=== PATIENT | male | born 1985 | race African-American/Black ===

== ENCOUNTER 2016-06-20 12:28 | Emergency (ER) | payer OTHER ==
--- NOTE | 2016-06-20 14:12 | DIAGNOSTIC IMAGING REPORT ---
PROCEDURE: XR ELBOW 3 OR 4 VIEWS - LEFT INDICATION: PAIN IN JOINT TECHNIQUE: Four views. COMPARISON: None. FINDINGS: A side plate and multiple screws are across the humerus. IMPRESSION: 1. Side plate and multiple screws across the humerus.
--- NOTE | 2016-06-20 14:23 | ED ORDER SUMMARY ---
..... Patient: CHICHO ANGEL OrderSheet [facility] VisitID: [id number] [place] [address] 31y, M Registration Date/Time: 06/20/2016 ORDER SHEET Weight: 67.1 kg (stated) Allergies: No Known Drug Allergy GENERAL ORDERS: Elbow 3 or 4V Left Urgent (13:08 06/20/2016 HBivens A.R.N.P.) (Ack 13:10 IJurca ER Tech1) (13:49 Vesna R.N.) MEDICATION ORDERS: Hydrocodone-APAP PO 5/325 mg (NOW, HIGH ALERT MEDICATION) (13:08 06/20/2016 HBivens A.R.N.P.) (Ack 13:18 Magdi R.N.) (13:25 Magdi R.N.) IV FLUIDS: ORDER SHEET NOTES: [Electronically signed by Henny Jones R.N. (14:52 06/20/2016)] [Electronically signed by Chante MejiaR.N.PYudith (15:00 06/20/2016)] [Electronically locked/signed by Henny Jones R.N. (14:52 06/20/2016)]
--- NOTE | 2016-06-20 14:23 | ED NURSING NOTES ---
Clinical Report - Nurses [facility] [address] [place] [address] 06/20/2016 12:31 Patient: CHICHO ANGEL TRIAGE Triage time 12:37. Acuity: LEVEL 3. Chief Complaint: INJURY TO LEFT ELBOW. Alert. No acute distress. RAJ COMA SCORE: Raj Coma Scale: 15- eyes open spontaneously (4); best verbal response- oriented x 4 (5); best motor response- obeys commands (6). --12:47 Henny Jones R.N. 12:37 06/20/16. BP: 156/104. HR: 77. RR: 16. O2 saturation: 100% on room air. Temp: 98.2 F (oral). Pain level now: 12/16. --12:47 Henny Jones R.N. Weight: 67.1 kg stated. Height/Length: 64 inches Per Patient. BMI: 25.4. --12:45 Henny Jones R.N. Medications Acetaminophen Oral. Folic Acid Oral. Loratadine Oral. Metoprolol Tartrate Oral. Protonix Oral. SEROquel Oral. TraZODone HCl Oral. --12:42 Henny Jones R.N. Fluticasone Furoate Nasal. --12:42 Henny Jones R.N. Norvasc Oral. --12:42 Henny Jones R.N. Ibuprofen Oral. --12:42 Henny Jones R.N. Medication/allergy information source: the patient's pill bottles. --12:47 Henny Jones R.N. Allergies No Known Drug Allergy. --12:42 Henny Jones R.N. History Arrived by private vehicle. Historian: patient. Accompanied by family. Primary physician (Robert). This occurred today. Mechanism of injury: (helping rearrange furniture, now arm and elbow hurt (previous surgery on same)). SOCIAL HX: Never smoker. Occasional alcohol use. History of drug use: marijuana. FALL RISK ASSESSMENT: Fall risk assessment completed. No fall risk identified. FUNCTIONAL ASSESSMENT: Functional assessment: no impairments noted. LEARNING NEEDS ASSESSMENT: The learning needs assessment revealed no barriers. --12:47 Henny Jones R.N. PROBLEMS: Pancreatitis. Hypertension. Depression. Anxiety Reaction. --12:44 Henny Jones R.N. ADDITIONAL SURGERIES: Elbow [2016]. --12:44 Henny Jones R.N. Assessment GENERAL / NEURO / PSYCH: Alert. Oriented X 4. Appears in no acute distress. Patient appears calm and cooperative. RESPIRATORY: Respirations not labored. SKIN: Skin is warm and dry. --12:47 Henny Jones R.N. Interventions ID band on patient. To treatment room. --12:47 Henny Jones R.N. PHYSICAL ASSESSMENT 12:55 06/20/16. Ambulatory to room. GENERAL / NEURO / PSYCH: Oriented X 4. Alert. Appears in no acute distress. EXTREMITIES: ( left radial pulse palpable, swelling in left hand and elbow). SKIN: Skin is warm and dry. --12:55 Henny Jones R.N. NURSING PROGRESS NOTES 12:51 06/20/16. Cold pack applied. Call light placed in reach. Side rails up x 1. Bed placed in lowest position. Brakes of bed on. --12:51 Henny Jones R.N. 13:25 06/20/2016 Hydrocodone-APAP (Hydrocodone-Acetaminophen) PO 5/325 mg Tablets 1 tab given. Allergies verified, confirmed 5 rights and sedative warning given to the patient. --13:25 Henny Jones R.N. Patient walked to radiology. Patient walked back to ED with tech. --13:31 Henny Jones R.N. 14:35. The patient is resting quietly. Overall patient status is the same- he states feels better (ice pack in place to left elbow). GENERAL / NEURO / PSYCH: Alert. Oriented X 4. RESPIRATORY: No respiratory distress. SKIN: Skin is warm and dry. --14:47 Henny Jones R.N. DISPOSITION / DISCHARGE Departure time: 1435. Condition at departure: stable. No learning barriers present. Discharge instructions provided and reviewed with the patient. Reviewed medication(s). Prescription(s) given to the patient. Patient verbalized understanding. Written instructions provided in Italian (spoke with pt about the importance of getting back on his BP meds, he verbalized understanding). The patient was discharged home and accompanied by pest control service representative. He left the Emergency Department ambulatory and via private vehicle. FALL RISK ASSESSMENT: Fall risk assessment completed. No fall risk identified. --14:46 Henny Jones R.N. 14:35 06/20/16. BP: 147/100. HR: 88. RR: 18. O2 saturation: 100% on room air. Temp: 97.9 F (oral). Pain level now: 4/10. Additional comments: provider aware of BP, pt states he hasn't had his blood pressure medicine "in a few days", his prescriptions are at the pharmacy, ready to be picked up. --14:46 Henny Jones R.N. Locked/Released at 06/20/2016 14:52 by Henny Jones R.N.
--- NOTE | 2016-06-20 14:23 | ED ORDER SUMMARY ---
..... Patient: CHICHO ANGEL OrderSheet [facility] VisitID: [id number] [place] [address] 31y, M Registration Date/Time: 06/20/2016 ORDER SHEET Weight: 67.1 kg (stated) Allergies: No Known Drug Allergy GENERAL ORDERS: Elbow 3 or 4V Left Urgent (13:08 06/20/2016 HBivens A.R.N.P.) (Ack 13:10 IJurca ER Tech1) (13:49 Vesna R.N.) MEDICATION ORDERS: Hydrocodone-APAP PO 5/325 mg (NOW, HIGH ALERT MEDICATION) (13:08 06/20/2016 HBivens A.R.N.P.) (Ack 13:18 Magdi R.N.) (13:25 Magdi R.N.) IV FLUIDS: ORDER SHEET NOTES: [Electronically signed by Henny Jones R.N. (14:52 06/20/2016)] [Electronically signed by Chante MejiaR.N.PYudith (15:00 06/20/2016)] [Electronically locked/signed by Henny Jones R.N. (14:52 06/20/2016)]
--- NOTE | 2016-06-20 14:23 | ED NURSING NOTES ---
Clinical Report - Nurses [facility] [address] [place] [address] 06/20/2016 12:31 Patient: CHICHO ANGEL TRIAGE Triage time 12:37. Acuity: LEVEL 3. Chief Complaint: INJURY TO LEFT ELBOW. Alert. No acute distress. RAJ COMA SCORE: Raj Coma Scale: 15- eyes open spontaneously (4); best verbal response- oriented x 4 (5); best motor response- obeys commands (6). --12:47 Henny Jones R.N. 12:37 06/20/16. BP: 156/104. HR: 77. RR: 16. O2 saturation: 100% on room air. Temp: 98.2 F (oral). Pain level now: 12/16. --12:47 Henny Jones R.N. Weight: 67.1 kg stated. Height/Length: 64 inches Per Patient. BMI: 25.4. --12:45 Henny Jones R.N. Medications Acetaminophen Oral. Folic Acid Oral. Loratadine Oral. Metoprolol Tartrate Oral. Protonix Oral. SEROquel Oral. TraZODone HCl Oral. --12:42 Henny Jones R.N. Fluticasone Furoate Nasal. --12:42 Henny Jones R.N. Norvasc Oral. --12:42 Henny Jones R.N. Ibuprofen Oral. --12:42 Henny Jones R.N. Medication/allergy information source: the patient's pill bottles. --12:47 Henny Jones R.N. Allergies No Known Drug Allergy. --12:42 Henny Jones R.N. History Arrived by private vehicle. Historian: patient. Accompanied by family. Primary physician (Robert). This occurred today. Mechanism of injury: (helping rearrange furniture, now arm and elbow hurt (previous surgery on same)). SOCIAL HX: Never smoker. Occasional alcohol use. History of drug use: marijuana. FALL RISK ASSESSMENT: Fall risk assessment completed. No fall risk identified. FUNCTIONAL ASSESSMENT: Functional assessment: no impairments noted. LEARNING NEEDS ASSESSMENT: The learning needs assessment revealed no barriers. --12:47 Henny Jones R.N. PROBLEMS: Pancreatitis. Hypertension. Depression. Anxiety Reaction. --12:44 Henny Jones R.N. ADDITIONAL SURGERIES: Elbow [2016]. --12:44 Henny Jones R.N. Assessment GENERAL / NEURO / PSYCH: Alert. Oriented X 4. Appears in no acute distress. Patient appears calm and cooperative. RESPIRATORY: Respirations not labored. SKIN: Skin is warm and dry. --12:47 Henny Jones R.N. Interventions ID band on patient. To treatment room. --12:47 Henny Jones R.N. PHYSICAL ASSESSMENT 12:55 06/20/16. Ambulatory to room. GENERAL / NEURO / PSYCH: Oriented X 4. Alert. Appears in no acute distress. EXTREMITIES: ( left radial pulse palpable, swelling in left hand and elbow). SKIN: Skin is warm and dry. --12:55 Henny Jones R.N. NURSING PROGRESS NOTES 12:51 06/20/16. Cold pack applied. Call light placed in reach. Side rails up x 1. Bed placed in lowest position. Brakes of bed on. --12:51 Henny Jones R.N. 13:25 06/20/2016 Hydrocodone-APAP (Hydrocodone-Acetaminophen) PO 5/325 mg Tablets 1 tab given. Allergies verified, confirmed 5 rights and sedative warning given to the patient. --13:25 Henny Jones R.N. Patient walked to radiology. Patient walked back to ED with tech. --13:31 Henny Jones R.N. 14:35. The patient is resting quietly. Overall patient status is the same- he states feels better (ice pack in place to left elbow). GENERAL / NEURO / PSYCH: Alert. Oriented X 4. RESPIRATORY: No respiratory distress. SKIN: Skin is warm and dry. --14:47 Henny Jones R.N. DISPOSITION / DISCHARGE Departure time: 1435. Condition at departure: stable. No learning barriers present. Discharge instructions provided and reviewed with the patient. Reviewed medication(s). Prescription(s) given to the patient. Patient verbalized understanding. Written instructions provided in [place] (spoke with pt about the importance of getting back on his BP meds, he verbalized understanding). The patient was discharged home and accompanied by sewer system supervisor. He left the Emergency Department ambulatory and via private vehicle. FALL RISK ASSESSMENT: Fall risk assessment completed. No fall risk identified. --14:46 Henny Jones R.N. 14:35 06/20/16. BP: 147/100. HR: 88. RR: 18. O2 saturation: 100% on room air. Temp: 97.9 F (oral). Pain level now: 4/10. Additional comments: provider aware of BP, pt states he hasn't had his blood pressure medicine "in a few days", his prescriptions are at the pharmacy, ready to be picked up. --14:46 Henny Jones R.N. Locked/Released at 06/20/2016 14:52 by Henny Jones R.N.
--- NOTE | 2016-06-20 14:23 | ED CLINICAL REPORT ---
Clinical Report - Physicians/Mid Levels [facility] [address] [place] [address] 06/20/2016 12:31 Patient: CHICHO ANGEL Time Seen: 13:03; initial patient contact, initial documentation, patient care assumed. Arrived- By private vehicle. Historian- patient and significant other. HISTORY OF PRESENT ILLNESS Chief Complaint: Injury to the left elbow. The injury happened today. Occurred at home. ( helping move, and lifting boxes, no definite injury, started hurting). Patient is experiencing severe pain. Patient denies injury to the head or neck. No other injury. ( got some otc motrin, but it didn't help much). REVIEW OF SYSTEMS The patient has had swelling. No tingling, numbness, weakness or skin laceration. All systems otherwise negative, except as recorded above. PAST HISTORY See nurses notes. PROBLEMS: Pancreatitis. Hypertension. Depression. Anxiety Reaction. --12:44 Henny Jones R.N. ADDITIONAL SURGERIES: Elbow [2016]. --12:44 Henny Jones R.N. SOCIAL HISTORY Never smoker. Occasional alcohol use. History of occasional drug use: marijuana. No recent travel. Is a local resident. FAMILY HISTORY No significant family medical history. ADDITIONAL NOTES The nursing notes have been reviewed with agreement regarding the chief complaint, HPI, ROS, PMH and patient medications and allergies. PHYSICAL EXAM Vital Signs: 06/20/2016 12:37 BP: 156/104. HR: 77. RR: 16. O2 saturation: 100%. Temp: 98.2 F. Pain level now: 10/10. Have been reviewed as abnormal and appear to be correct. Hypertensive. Heart rate normal. Respiratory rate normal. Temperature normal. Oxygen saturation normal. Appearance: Alert. Oriented X3. No acute distress. Head: Head atraumatic. Eyes: Pupils equal, round and reactive to light. Eyes normal inspection. Respiratory: No respiratory distress. Skin: Skin intact. Skin warm and dry. Normal skin color. Normal skin turgor. Extremities: Upper extremity otherwise negative. Extremities otherwise negative. Neuro, Vascular and Tendons: Vascular status intact. Sensation intact. Motor intact. Tendon function intact. Neuro: Oriented X 3. No motor deficit. No sensory deficit. Note: isolated injury to elbow. LABS, X-RAYS, AND EKG X-Rays: Left elbow negative. Lt Elbow X-ray: (IMPRESSION: 1. Side plate and multiple screws across the humerus. Electronically Final signed by:Narciso Ervin MD 06/20/2016 2:13:13 PM). The X-rays were interpreted by the radiologist and contemporaneously by me. Interpretation time: 14:14. PROGRESS AND PROCEDURES Course of Care: 14:29 06/20/16. pt has vee for #6 er visits, related to alcohol issues, see report for full details nurse reporting during dc, pt was admitting to her that he has not been taking his bp meds like he should, and that there is rx at pharmacy that he never picked up. Patient and spouse counseled in person regarding the patient's stable condition, test results and diagnosis. 14:15. Differential Diagnosis: I considered fracture, stress fracture, sprain, hyperextension, lateral epicondylitis, soft tissue injury, soft tissue hematoma, tendonitis, myositis, fasciitis, bursitis and tendon injury as a possible cause of upper extremity pain in this patient. This is a partial list of diagnoses considered. Above considerations are based on history, physical exam and X-Ray data. Differential diagnosis was discussed with patient and patient's spouse. Disposition: Discharged home in good and improved condition (14:23). Condition: good and stable. CLINICAL IMPRESSION Acute inflammatory tendonitis in the left elbow. INSTRUCTIONS Apply ice for 20 minutes four times a day for two days until better. Don't apply ice directly to skin. Warnings: GENERAL WARNINGS: Return or contact your physician immediately if your condition worsens or changes unexpectedly, if not improving as expected, or if other problems arise. Specifically return if problem worsens. Prescription Medications: Ultram 50 mg tablets: take 1-2 orally every 6 hours as needed for pain. Dispense twenty (20). No refills. Substitution is permissible. Follow-up: Follow up with your doctor in about one week as needed. Call for an appointment. Summary of care provided to patient. Screening today revealed the patient's blood pressure to be in the hypertensive range. The patient should follow up with a primary care provider for blood pressure management. Understanding of the discharge instructions verbalized by patient. (Electronically signed by Chante Mejia A.R.N.P. 06/20/2016 15:00) Addenda for CHICHO ANGEL VisitID: [id number] Date: 06/20/2016 06/20/2016 14:57 1315 - 144/100 1400 - 166/119 (Electronically signed by Henny Jones R.N. - 06/20/2016 14:57)
--- NOTE | 2016-06-20 15:00 | ED DISCHARGE INSTRUCTIONS ---
Patient: CHICHO ANGEL General Instructions [facility] VisitID: [id number] [place] [address] 31y, M Registration Date/Time: 06/20/2016 Acute inflammatory tendonitis in the left elbow. INSTRUCTIONS Apply ice for 20 minutes four times a day for two days until better. Don't apply ice directly to skin. Warnings: GENERAL WARNINGS: Return or contact your physician immediately if your condition worsens or changes unexpectedly, if not improving as expected, or if other problems arise. Specifically return if problem worsens. Prescription Medications: Ultram 50 mg tablets: take 1-2 orally every 6 hours as needed for pain. Dispense twenty (20). No refills. Substitution is permissible. Follow-up: Follow up with your doctor in about one week as needed. Call for an appointment. Summary of care provided to patient. Screening today revealed the patient's blood pressure to be in the hypertensive range. The patient should follow up with a primary care provider for blood pressure management. Understanding of the discharge instructions verbalized by patient. ADDITIONAL INFORMATION Tendonitis A tendon is the thick fibrous cord that joins muscle to bone and causes joints to move. Tendonitis is inflammation of the tendon which may be due to overuse, injury or infection. This usually involves the shoulders, forearm, wrist, hands and foot. Symptoms include local pain, swelling and tenderness to the touch. Movement of the involved joint increases the pain. Tendonitis requires about 4 to 6 weeks to heal. It is treated by preventing motion of the tendon with a splint or brace and use of anti-inflammatory medicine. Home Care: Apply an ice pack (ice cubes in a plastic bag, wrapped in a towel) over the injured area for 20 minutes every 1-2 hours the first day for pain relief. Continue this 3-4 times a day until the pain and swelling goes away. Rest the inflamed joint and protect it from movement. You may use ibuprofen (Motrin, Advil) or naproxen (Aleve, Naprosyn) to treat pain and inflammation, unless another medicine was prescribed. If you can't take these medicines, acetaminophen (Tylenol) may help with the pain, but does not treat inflammation. [NOTE : If you have chronic liver or kidney disease or ever had a stomach ulcer or GI bleeding, talk with your doctor before using these medicines.] As your symptoms improve, begin gradual motion at the involved joint. Follow Up With Your Doctor If Not Improving After The First Five Days Of Treatment. Get Prompt Medical Attention If Any Of The Following Occur: Redness over the painful area Increasing pain or swelling at the joint Fever of 100.4F (38C) or higher, or as directed by your healthcare provider Tramadol Hydrochloride Oral tablet What is this medicine? TRAMADOL (TRA ma dole) is a pain reliever. It is used to treat moderate to severe pain in adults. How should I use this medicine? Take this medicine by mouth with a full glass of water. Follow the directions on the prescription label. If the medicine upsets your stomach, take it with food or milk. Do not take more medicine than you are told to take. Talk to your mobility scooter repairer regarding the use of this medicine in children. Special care may be needed. What side effects may I notice from receiving this medicine? Side effects that you should report to your doctor or health acute care physician as soon as possible: allergic reactions like skin rash, itching or hives, swelling of the face, lips, or tongue breathing difficulties, wheezing confusion itching light headedness or fainting spells redness, blistering, peeling or loosening of the skin, including inside the mouth seizures Side effects that usually do not require medical attention (report to your doctor or health acute care physician if they continue or are bothersome): constipation dizziness drowsiness headache nausea, vomiting What may interact with this medicine? Do not take this medicine with any of the following medications: MAOIs like Carbex, Eldepryl, Marplan, Nardil, and Parnate This medicine may also interact with the following medications: alcohol or medicines that contain alcohol antihistamines benzodiazepines bupropion carbamazepine or oxcarbazepine clozapine cyclobenzaprine digoxin furazolidone linezolid medicines for depression, anxiety, or psychotic disturbances medicines for migraine headache like almotriptan, eletriptan, frovatriptan, naratriptan, rizatriptan, sumatriptan, zolmitriptan medicines for pain like pentazocine, buprenorphine, butorphanol, meperidine, nalbuphine, and propoxyphene medicines for sleep muscle relaxants naltrexone phenobarbital phenothiazines like perphenazine, thioridazine, chlorpromazine, mesoridazine, fluphenazine, prochlorperazine, promazine, and trifluoperazine procarbazine warfarin What if I miss a dose? If you miss a dose, take it as soon as you can. If it is almost time for your next dose, take only that dose. Do not take double or extra doses. Where should I keep my medicine? Keep out of the reach of children. Store at room temperature between 15 and 30 degrees C (59 and 86 degrees F). Keep container tightly closed. Throw away any unused medicine after the expiration date. What should I tell my health care provider before I take this medicine? They need to know if you have any of these conditions: brain tumor depression drug abuse or addiction head injury if you frequently drink alcohol containing drinks kidney disease or trouble passing urine liver disease lung disease, asthma, or breathing problems seizures or epilepsy suicidal thoughts, plans, or attempt; a previous suicide attempt by you or a family member an unusual or allergic reaction to tramadol, codeine, other medicines, foods, dyes, or preservatives or trying to get breast-feeding What should I watch for while using this medicine? Tell your doctor or health acute care physician if your pain does not go away, if it gets worse, or if you have new or a different type of pain. You may develop tolerance to the medicine. Tolerance means that you will need a higher dose of the medicine for pain relief. Tolerance is normal and is expected if you take this medicine for a long time. Do not suddenly stop taking your medicine because you may develop a severe reaction. Your body becomes used to the medicine. This does NOT mean you are addicted. Addiction is a behavior related to getting and using a drug for a non-medical reason. If you have pain, you have a medical reason to take pain medicine. Your doctor will tell you how much medicine to take. If your doctor wants you to stop the medicine, the dose will be slowly lowered over time to avoid any side effects. You may get drowsy or dizzy. Do not drive, use machinery, or do anything that needs mental alertness until you know how this medicine affects you. Do not stand or sit up quickly, especially if you are an older patient. This reduces the risk of dizzy or fainting spells. Alcohol can increase or decrease the effects of this medicine. Avoid alcoholic drinks. You may have constipation. Try to have a bowel movement at least every 2 to 3 days. If you do not have a bowel movement for 3 days, call your doctor or health acute care physician. Your mouth may get dry. Chewing sugarless gum or sucking hard candy, and drinking plenty of water may help. Contact your doctor if the problem does not go away or is severe. You have been given the following additional information: Tendonitis Tramadol Hydrochloride Oral tablet (Electronically signed by Chante Mejia A.R.N.P. 06/20/2016 15:00)
--- NOTE | 2016-06-20 15:00 | ED MAR SUMMARY ---
..... Medication Administration Record [facility] [address] [place] [address] Patient: CHICHO ANGEL Visit ID: [id number] 31y, M Weight: 67.1 kg Height/Length: 64 in BMI: 25.4 ALLERGIES: No Known Drug Allergy Given 13:25 06/20/2016 Henny Jones RPallavi Medication Administered: HYDROCODONE-APAP [PO] (HYDROCODONE-ACETAMINOPHEN), Dose: 1 tab 5/325 mg Tablets PO. Medication Ordered: Hydrocodone-APAP PO 5/325 mg (NOW, HIGH ALERT MEDICATION).
--- NOTE | 2016-06-20 15:00 | ED MED RECONCILIATION SUMMARY ---
Patient: CHICHO ANGEL Medication Reconciliation Report [facility] VisitID: [id number] [address] [place] [address] 31y, M Registration Date/Time: 06/20/2016 Weight: 67.1 kg Height/Length: 64 in. BMI: 25.4 ALLERGIES: No Known Drug Allergy The patient's Home Medications are listed below: THE FOLLOWING MEDICATIONS NEED TO BE RECONCILED: Acetaminophen Oral Fluticasone Furoate Nasal Folic Acid Oral Ibuprofen Oral Loratadine Oral Metoprolol Tartrate Oral Norvasc Oral Protonix Oral SEROquel Oral TraZODone HCl Oral The source(s) of the original Home Medication information: patient's pill bottles The following Medications were given to the patient in the Emergency Department: Hydrocodone-APAP [PO] PO 1 tab, administered: 06/20/2016 1:25:00 PM The following Medications were prescribed to the patient: Ultram 50 mg tablets: take 1-2 orally every 6 hours as needed for pain. Dispense twenty (20). No refills. Substitution is permissible. -- Chante Mejia A.R.N.P.
--- NOTE | 2016-06-20 15:00 | ED MAR SUMMARY ---
..... Medication Administration Record [facility] [address] [place] [address] Patient: CHICHO ANGEL Visit ID: [id number] 31y, M Weight: 67.1 kg Height/Length: 64 in BMI: 25.4 ALLERGIES: No Known Drug Allergy Given 13:25 06/20/2016 Henny Jones RPallavi Medication Administered: HYDROCODONE-APAP [PO] (HYDROCODONE-ACETAMINOPHEN), Dose: 1 tab 5/325 mg Tablets PO. Medication Ordered: Hydrocodone-APAP PO 5/325 mg (NOW, HIGH ALERT MEDICATION).
--- NOTE | 2016-06-20 15:00 | ED DISCHARGE INSTRUCTIONS ---
Patient: CHICHO ANGEL General Instructions [facility] VisitID: [id number] [place] [address] 31y, M Registration Date/Time: 06/20/2016 Acute inflammatory tendonitis in the left elbow. INSTRUCTIONS Apply ice for 20 minutes four times a day for two days until better. Don't apply ice directly to skin. Warnings: GENERAL WARNINGS: Return or contact your physician immediately if your condition worsens or changes unexpectedly, if not improving as expected, or if other problems arise. Specifically return if problem worsens. Prescription Medications: Ultram 50 mg tablets: take 1-2 orally every 6 hours as needed for pain. Dispense twenty (20). No refills. Substitution is permissible. Follow-up: Follow up with your doctor in about one week as needed. Call for an appointment. Summary of care provided to patient. Screening today revealed the patient's blood pressure to be in the hypertensive range. The patient should follow up with a primary care provider for blood pressure management. Understanding of the discharge instructions verbalized by patient. ADDITIONAL INFORMATION Tendonitis A tendon is the thick fibrous cord that joins muscle to bone and causes joints to move. Tendonitis is inflammation of the tendon which may be due to overuse, injury or infection. This usually involves the shoulders, forearm, wrist, hands and foot. Symptoms include local pain, swelling and tenderness to the touch. Movement of the involved joint increases the pain. Tendonitis requires about 4 to 6 weeks to heal. It is treated by preventing motion of the tendon with a splint or brace and use of anti-inflammatory medicine. Home Care: Apply an ice pack (ice cubes in a plastic bag, wrapped in a towel) over the injured area for 20 minutes every 1-2 hours the first day for pain relief. Continue this 3-4 times a day until the pain and swelling goes away. Rest the inflamed joint and protect it from movement. You may use ibuprofen (Motrin, Advil) or naproxen (Aleve, Naprosyn) to treat pain and inflammation, unless another medicine was prescribed. If you can't take these medicines, acetaminophen (Tylenol) may help with the pain, but does not treat inflammation. [NOTE : If you have chronic liver or kidney disease or ever had a stomach ulcer or GI bleeding, talk with your doctor before using these medicines.] As your symptoms improve, begin gradual motion at the involved joint. Follow Up With Your Doctor If Not Improving After The First Five Days Of Treatment. Get Prompt Medical Attention If Any Of The Following Occur: Redness over the painful area Increasing pain or swelling at the joint Fever of 100.4F (38C) or higher, or as directed by your healthcare provider Tramadol Hydrochloride Oral tablet What is this medicine? TRAMADOL (TRA ma dole) is a pain reliever. It is used to treat moderate to severe pain in adults. How should I use this medicine? Take this medicine by mouth with a full glass of water. Follow the directions on the prescription label. If the medicine upsets your stomach, take it with food or milk. Do not take more medicine than you are told to take. Talk to your renal medicine specialist regarding the use of this medicine in children. Special care may be needed. What side effects may I notice from receiving this medicine? Side effects that you should report to your doctor or health aged or disabled care worker as soon as possible: allergic reactions like skin rash, itching or hives, swelling of the face, lips, or tongue breathing difficulties, wheezing confusion itching light headedness or fainting spells redness, blistering, peeling or loosening of the skin, including inside the mouth seizures Side effects that usually do not require medical attention (report to your doctor or health aged or disabled care worker if they continue or are bothersome): constipation dizziness drowsiness headache nausea, vomiting What may interact with this medicine? Do not take this medicine with any of the following medications: MAOIs like Carbex, Eldepryl, Marplan, Nardil, and Parnate This medicine may also interact with the following medications: alcohol or medicines that contain alcohol antihistamines benzodiazepines bupropion carbamazepine or oxcarbazepine clozapine cyclobenzaprine digoxin furazolidone linezolid medicines for depression, anxiety, or psychotic disturbances medicines for migraine headache like almotriptan, eletriptan, frovatriptan, naratriptan, rizatriptan, sumatriptan, zolmitriptan medicines for pain like pentazocine, buprenorphine, butorphanol, meperidine, nalbuphine, and propoxyphene medicines for sleep muscle relaxants naltrexone phenobarbital phenothiazines like perphenazine, thioridazine, chlorpromazine, mesoridazine, fluphenazine, prochlorperazine, promazine, and trifluoperazine procarbazine warfarin What if I miss a dose? If you miss a dose, take it as soon as you can. If it is almost time for your next dose, take only that dose. Do not take double or extra doses. Where should I keep my medicine? Keep out of the reach of children. Store at room temperature between 15 and 30 degrees C (59 and 86 degrees F). Keep container tightly closed. Throw away any unused medicine after the expiration date. What should I tell my health care provider before I take this medicine? They need to know if you have any of these conditions: brain tumor depression drug abuse or addiction head injury if you frequently drink alcohol containing drinks kidney disease or trouble passing urine liver disease lung disease, asthma, or breathing problems seizures or epilepsy suicidal thoughts, plans, or attempt; a previous suicide attempt by you or a family member an unusual or allergic reaction to tramadol, codeine, other medicines, foods, dyes, or preservatives or trying to get breast-feeding What should I watch for while using this medicine? Tell your doctor or health aged or disabled care worker if your pain does not go away, if it gets worse, or if you have new or a different type of pain. You may develop tolerance to the medicine. Tolerance means that you will need a higher dose of the medicine for pain relief. Tolerance is normal and is expected if you take this medicine for a long time. Do not suddenly stop taking your medicine because you may develop a severe reaction. Your body becomes used to the medicine. This does NOT mean you are addicted. Addiction is a behavior related to getting and using a drug for a non-medical reason. If you have pain, you have a medical reason to take pain medicine. Your doctor will tell you how much medicine to take. If your doctor wants you to stop the medicine, the dose will be slowly lowered over time to avoid any side effects. You may get drowsy or dizzy. Do not drive, use machinery, or do anything that needs mental alertness until you know how this medicine affects you. Do not stand or sit up quickly, especially if you are an older patient. This reduces the risk of dizzy or fainting spells. Alcohol can increase or decrease the effects of this medicine. Avoid alcoholic drinks. You may have constipation. Try to have a bowel movement at least every 2 to 3 days. If you do not have a bowel movement for 3 days, call your doctor or health aged or disabled care worker. Your mouth may get dry. Chewing sugarless gum or sucking hard candy, and drinking plenty of water may help. Contact your doctor if the problem does not go away or is severe. You have been given the following additional information: Tendonitis Tramadol Hydrochloride Oral tablet (Electronically signed by Chante Mejia A.R.N.P. 06/20/2016 15:00)
--- NOTE | 2016-06-20 15:00 | ED MED RECONCILIATION SUMMARY ---
Patient: CHICHO ANGEL Medication Reconciliation Report [facility] VisitID: [id number] [address] [place] [address] 31y, M Registration Date/Time: 06/20/2016 Weight: 67.1 kg Height/Length: 64 in. BMI: 25.4 ALLERGIES: No Known Drug Allergy The patient's Home Medications are listed below: THE FOLLOWING MEDICATIONS NEED TO BE RECONCILED: Acetaminophen Oral Fluticasone Furoate Nasal Folic Acid Oral Ibuprofen Oral Loratadine Oral Metoprolol Tartrate Oral Norvasc Oral Protonix Oral SEROquel Oral TraZODone HCl Oral The source(s) of the original Home Medication information: patient's pill bottles The following Medications were given to the patient in the Emergency Department: Hydrocodone-APAP [PO] PO 1 tab, administered: 06/20/2016 1:25:00 PM The following Medications were prescribed to the patient: Ultram 50 mg tablets: take 1-2 orally every 6 hours as needed for pain. Dispense twenty (20). No refills. Substitution is permissible. -- Chante Mejia A.R.N.P.
== END 2016-06-20 14:35 | disposition home or self-care (01) ==
LOC: ED SRH 12:28
DX: M77.8 Other enthesopathies, not elsewhere classified (principal); X50.0XXA Overexertion from strenuous movement or load, initial encounter; Y92.009 Unspecified place in unspecified non-institutional (private) residence as the place of occurrence of the external cause; Y93.89 Activity, other specified; Y99.9 Unspecified external cause status; I10 Essential (primary) hypertension; Z79.899 Other long term (current) drug therapy; Z79.1 Long term (current) use of non-steroidal anti-inflammatories (NSAID)

== ENCOUNTER 2016-08-11 16:51 | Inpatient (IN) | payer OTHER ==
[~2016-08-11] VITALS: Ht 162.6 cm; Wt 65.8 kg
--- NOTE | 2016-08-11 19:05 | DIAGNOSTIC IMAGING REPORT ---
PROCEDURE: CT ABD/PELVIS WITH CONTRAST INDICATION: Abdominal pain. Nausea and vomiting. History pancreatitis. TECHNIQUE: 100 ml of Isovue 300 were injected intravenously and axial images were obtained of the entire abdomen and pelvis with sagittal and coronal reformations. COMPARISON: None. FINDINGS: ABDOMEN: There are mild to moderate inflammatory changes of the pancreas with mild surrounding edema. No evidence of fluid collection or abscess. Mild fatty infiltration of the liver. Gallbladder, spleen, kidneys, and aorta are normal. Bowel pattern is normal, including appendix. PELVIS: Pelvic structures are normal. Trace free fluid. IMPRESSION: 1. Mild to moderate inflammatory changes of the pancreas consistent with acute pancreatitis. 2. Mild fatty infiltration of the liver. 3. Trace free fluid in the pelvis. 4. Otherwise negative CT abdomen and pelvis. 5. Findings discussed with Dr. Sher Han. All CT scans at this facility use dose modulation, iterative reconstruction, and/or weight-based dosing when appropriate to reduce radiation dose to as low as reasonably achievable.
--- NOTE | 2016-08-11 19:45 | ED ORDER SUMMARY ---
..... Patient: CHICHO ANGEL OrderSheet [facility] VisitID: [id number] [place] [address] 31y, M Registration Date/Time: 08/11/2016 ORDER SHEET Weight: 68.0 kg (stated) Allergies: No Known Drug Allergy GENERAL ORDERS: CBC w Diff Urgent (17:31 08/11/2016 Leonel CABALLERO) (Ack 17:32 Merced) (17:32 KWilliams R.N.) CMP Urgent (17:08/11/2016 Leonel CABALLERO) (Ack 17:32 [place]) (17:32 KWilliams R.N.) UA-Culture if indicated Urgent (17:08/11/2016 Leonel CABALLERO) (Ack 17:32 [place]) (17:44 KWilliams R.N.) Amylase Urgent (17:08/11/2016 Leonel CABALLERO) (Ack 17:32 [place]) (17:33 KWilliams R.N.) Lipase Urgent (17:31 08/11/2016 Leonel CABALLERO) (Ack 17:32 [place]) (17:33 KWilliams R.N.) Urine Drug Screen Urgent (17:43 08/11/2016 Leonel CABALLERO) (Ack 17:44 [place]) (17:44 KWilliams R.N.) CT Abd/Pel w Cont (No) (See report) (pancreatitis) Urgent (18:16 08/11/2016 Leonel CABALLERO) (Ack 18:17 [place]) (18:29 KWilliams R.N.) Ethyl Alcohol Urgent (18:48 08/11/2016 Leonel CABALLERO) (Ack 18:48 [place]) (19:16 CBradburn R.N.) US Abdomen Limited (No) Urgent (19:04 08/11/2016 Leonel CABALLERO) (Ack 19:06 [place]) (19:16 CBradburn R.N.) MEDICATION ORDERS: IV FLUIDS: IV NS : initial bolus 500 mL (1000 mL/hr), then 125 mL/hr for 4h (NOW); Urgent (17:31 08/11/2016 Leonel CABALLERO) (17:45 Bere R.N.) (Cancelled: Other18:09 Leonel CABALLERO) Zofran IV 4 mg (NOW) (17:42 08/11/2016 Leonel CABALLERO) (17:48 Bere R.N.) IV NS : initial bolus 1000 mL (1000 mL/hr), then 1000 mL/hr for X2 (NOW); Urgent (18:09 08/11/2016 Leonel CABALLERO) (19:16 CBenma R.N.) Protonix IVP 40mg 40 mg (Mix in NS 10ml over 2min) (18:10 08/11/2016 Leonel CABALLERO) (18:21 KWfelix R.N.) Dilaudid IV 0.5 mg (HIGH ALERT MEDICATION, NOW) (18:11 08/11/2016 Leonel CABALLERO) (18:22 KWfelix R.N.) Dilaudid IV 0.5 mg (HIGH ALERT MEDICATION, NOW) (19:07 08/11/2016 Leonel CABALLERO) (19:14 CBenma R.N.) ORDER SHEET NOTES: [Electronically signed by Katie Allan R.N. (21:50 08/11/2016)] [Electronically signed by Sher Han MD (21:42 08/12/2016)] [Electronically locked/signed by Katie Allan R.N. (21:50 08/11/2016)]
--- NOTE | 2016-08-11 19:45 | ED NURSING NOTES ---
Clinical Report - [facility] [address] [place] [address] 08/11/2016 16:52 Patient: CIHCHO ANGEL TRIAGE Triage time 17:03. Acuity: LEVEL 3. Chief Complaint: ABDOMINAL PAIN, NAUSEA and VOMITING. Alert. No acute distress. KERLINE COMA SCORE: Felicity Coma Scale: 15- eyes open spontaneously (4); best verbal response- oriented x 4 (5); best motor response- obeys commands (6). --17:09 Lori Rincon R.N. 17:03 08/11/16. BP: 149/105. HR: 81. RR: 16. O2 saturation: 97% on room air. Temp: 98.7 F (oral). Pain level now 10/10. --17:09 Lori Rincon R.N. Weight: 68 kg stated. Height/Length: 64 inches Per Patient. BMI: 25.8. --17:03 Lori Rincon R.N. Medications Acetaminophen Oral. Fluticasone Furoate Nasal. Folic Acid Oral. Ibuprofen Oral. Loratadine Oral. Metoprolol Tartrate Oral. Norvasc Oral. Protonix Oral. --17:08 Lori Rincon R.N. SEROquel Oral. TraZODone HCl Oral. --17:08 Lori Rincon R.N. Medication/allergy information source: the patient. --17:09 Lori Rincon R.N. Allergies No Known Drug Allergy. --17:08 Lori Rincon R.N. History Arrived by private vehicle, and accompanied by (ride from neighbor). Primary physician ([facility]). ( nausea, vomiting and abd pain starting last night. Had similar sx one year ago and dx with pancreatitis. last drink last night.). Treatment TONGUE TRIMMER: None. SOCIAL HX: Never smoker. Regular alcohol use; consumes six beers a day. History of drug use: marijuana. FALL RISK ASSESSMENT: Fall risk assessment completed. No fall risk identified. NUTRITIONAL RISK ASSESSMENT: The nutritional risk assessment revealed no deficiencies. FUNCTIONAL ASSESSMENT: Functional assessment: no impairments noted. LEARNING NEEDS ASSESSMENT: The learning needs assessment revealed no barriers. SKIN INTEGRITY ASSESSMENT: Skin integrity risk assessment completed. No skin integrity risk identified. --17:09 Lori Rincon R.N. PROBLEMS: Tendonitis. Depression. Pancreatitis. Hypertension. Anxiety Reaction. --17:09 Lori Rincon R.N. Interventions ID band on patient. To treatment room. --17:09 Lori Rincon R.N. PHYSICAL ASSESSMENT Ambulatory to room. GENERAL / NEURO / PSYCH: Alert. Oriented X 4. Appears in pain. RESPIRATORY: Respirations not labored. CVS: Capillary refill less than 2 seconds. GI / : Abdomen soft. Abdominal tenderness in the upper abdomen, right upper quadrant and epigastric area. SKIN: Skin is warm and dry. --17:09 Lori Rincon R.N. NURSING PROGRESS NOTES 17:10 08/11/16. The plan of care for this patient has been created. Patient gowned. Head of bed elevated. Call light placed in reach. Bed placed in lowest position. Brakes of bed on. Patient ready for evaluation- chart flagged. --17:10 Lori Rincon R.N. 17:15 08/11/2016 Site #1 started via IV in the left antecubital space with an 20g angiocath; one attempt. Blood drawn. Labeled in the presence of the patient and sent to the lab. Saline lock flushed with 10 mL saline (no blue top drawn). --17:15 Josephine Green R.N. Patient ID band checked for patient name and birthdate: patient confirmed. Instructions provided to collect clean catch urine and patient verbalized understanding. Clean catch urine collected with return of alyson-colored clear urine; odor is normal; sample sent to lab for urinalysis and culture. Specimen labeled in the presence of the patient. --17:44 Lori Rincon R.N. 17:35 08/11/2016 Started bag #1 1000 mL IV Fluids IV NS (Saline); bolus of 500 mL over 30 minute(s) then at 125 mL/hr over 1 hour(s) via site #1. Allergies verified and confirmed 5 rights. IV patency established. IV site checked: no pain, redness, or swelling. IV flushed thoroughly pre- and post-medication administration. --17:45 Lori Rincon R.N. 17:45 08/11/2016 Zofran (Ondansetron HCl) IVP 4 mg given over 2 minute(s) via site #1. Allergies verified and confirmed 5 rights. IV patency established. IV site checked: no pain, redness, or swelling. IV flushed thoroughly pre- and post-medication administration. IVP given by RN. --17:48 Lori Rincon R.N. 18:16 08/11/2016 PROTONIX (Pantoprazole Sodium) IVP 40 mg given over 2 minute(s) via site #1. Allergies verified and confirmed 5 rights. IV patency established. IV site checked: no pain, redness, or swelling. IV flushed thoroughly pre- and post-medication administration. IVP given by RN. --18:21 Lori Rincon R.N. 18:22 08/11/2016 Dilaudid (HYDROmorphone HCl PF) IVP 0.5 mg given over 2 minute(s) via site #1. Allergies verified, confirmed 5 rights and sedative warning given to the patient. IV patency established. IV site checked: no pain, redness, or swelling. IV flushed thoroughly pre- and post-medication administration. IVP given by RN. --18:22 Lori Rincon R.N. 18:22 08/11/16. BP: 128/92. HR: 84. RR: 19. O2 saturation: 99%. Pain level now 10/10. --18:22 Lori Rincon R.N. Patient transported to CT by stretcher. (1827 PM). --18:27 Teresa Julien R.N. 18:30 08/11/16. Patient transported to CT by stretcher with tech. --18:30 Lori Rincon R.N. Patient returned from CT by stretcher with tech. --18:40 Lori Rincon R.N. 19:01 08/11/16. Care transferred and report given (JESSE Wilson). --19:01 Lori Rincon R.N. 19:14 08/11/2016 Dilaudid (HYDROmorphone HCl PF) IVP 0.5 mg given over 2 minute(s) via site #1. Sedative warning given to the patient. IV patency established. IV site checked: no pain, redness, or swelling. IV flushed thoroughly pre- and post-medication administration. IVP given by RN. --19:14 Katie Allan R.N. 19:16 08/11/2016 Started bag #1 1000 mL IV Fluids IV NS (Saline); bolus of 1000 mL over 1 hour(s) via site #1 via IV pump. Allergies verified and confirmed 5 rights. IV patency established. IV site checked: no pain, redness, or swelling. IV flushed thoroughly pre- and post-medication administration. --19:16 Katie Allan R.N. ( US at bedside). --19:16 Katie Allan R.N. 19:45 08/11/2016 Dilaudid IVP Response: pain is improving. Symptoms have improved the patient feels better. --20:18 Katie Allan R.N. 20:16 08/11/2016 IV Fluids IV NS Discontinued: bag #2 completed. Total amount infused: 2000 mL. IV patency established. IV site checked: no pain, redness, or swelling. IV flushed thoroughly. --20:16 Katie Allan R.N. 20:18 08/11/2016 Site #[address] upon admission; patent, no pain and no signs of infection or infiltration. Good blood return present. Converted to saline lock and flushed with 10 mL saline; flushes easily. --20:18 Katie Allan R.N. 20:18 08/11/2016 IV Fluids IV NS Discontinued: bag #1 completed. Total amount infused: 1000 mL. IV patency established. IV site checked: no pain, redness, or swelling. IV flushed thoroughly. --20:18 Katie Allan R.N. Overall patient status is the same. --20:19 Katie Allan R.N. 20:15 08/11/16. BP: 136/96. HR: 79. RR: 18. O2 saturation: 100% on room air. Temp: deferred. Pain level now: 10/16. --20:19 Katie Allan R.N. DISPOSITION / DISCHARGE Transported via stretcher by tech and nurse with IV. Report was given to a nurse via a phone call. Report included patient's care, treatment, medications, reviewed medication reconcilliation, and condition (including any recent changes or anticipated changes). All questions were answered. Report was acknowledged and care was transferred. (Cat RN). Patient's personal items include: socks and shoes; items were placed in belongings bag, given to the patient and transported with the patient. --21:12 Katie Allan R.N. 21:09 08/11/16. BP: 143/91 taken on the right arm, while lying. HR: 85 (regular and normal rate). RR: 18. O2 saturation: 100% on room air. Temp: 98.2 F (oral). Pain level now: 10/16. --21:12 Katie Allan R.N. Departure time: 21:45. Transported via stretcher by transport team. --21:45 Dinora Dupree R.N. Departure time: 2139. --21:50 Katie Allan R.N. 21:48 08/11/16. BP: deferred. HR: deferred. RR: deferred. O2 saturation: deferred. Temp: deferred. Pain level now deferred. --21:50 Katie Allan R.N. Locked/Released at 08/11/2016 21:50 by Katie Allan R.N.
--- NOTE | 2016-08-11 19:45 | ED CLINICAL REPORT ---
Clinical Report - Physicians/Mid Levels [facility] [address] [place] [address] 08/11/2016 16:52 Patient: CHICHO ANGEL Time Seen: 17:20. Arrived- By private vehicle. Historian- patient. HISTORY OF PRESENT ILLNESS Chief Complaint: ABDOMINAL PAIN. It is described as burning and it is described as located in the upper abdomen and radiating to the chest and upper back. At its maximum, severity described as severe. When seen in the E.D., severity described as severe. Modifying factors- worsened by movement and walking. This started today and is still present. It was abrupt in onset and has been constant. The patient has had nausea and loss of appetite. He has had vomiting. The vomiting has occurred numerous times and has been bilious. No blood-tinged emesis, coffee-grounds emesis or frankly bloody emesis. No diarrhea. Similar symptoms previously: REVIEW OF SYSTEMS The patient has had chills (when vomiting). No fatigue, fever, calf pain, pedal edema or palpitations. No black stools, bloody stools or urinary problems. He has experienced sweats. (when vomiting). All systems otherwise negative, except as recorded above. PAST HISTORY PCP - Jj Wood. Medications: SEROquel Oral. TraZODone HCl Oral. Acetaminophen Oral. Fluticasone Furoate Nasal. Folic Acid Oral. Ibuprofen Oral. Loratadine Oral. Metoprolol Tartrate Oral. Norvasc Oral. Protonix Oral. Allergies: No Known Drug Allergy. SOCIAL HISTORY Never smoker. Heavy alcohol use; consumes four beers a day. History of occasional drug use: marijuana. FAMILY HISTORY Hypertension in first-degree relative (mother and father). ADDITIONAL NOTES The nursing notes have been reviewed. PHYSICAL EXAM Vital Signs: 08/11/2016 17:03 BP: 149/105. HR: 81. RR: 16. O2 saturation: 97%. Temp: 98.7 F. Have been reviewed. Appearance: Appears to be in pain. Eyes: Pupils equal, round and reactive to light. ENT: Pharynx normal. Neck: Normal inspection. Neck supple. CVS: Normal heart rate and rhythm. Heart sounds normal. Respiratory: No respiratory distress. Breath sounds normal. Abdomen: Moderate tenderness in the upper abdomen. Back: Normal inspection. No CVA tenderness. Skin: Skin warm. Normal skin color. Normal skin turgor. Extremities: Extremities exhibit normal ROM. No lower extremity edema. LABS, X-RAYS, AND EKG Abdominal CT: IMPRESSION: 1. Mild to moderate inflammatory changes of the pancreas consistent with acute pancreatitis. 2. Mild fatty infiltration of the liver. 3. Trace free fluid in the pelvis. 4. Otherwise negative CT abdomen and pelvis. The study was interpreted contemporaneously by me and discussed with the radiologist. Abdominal Sonogram: Normal study. No gallstones, gallbladder wall thickening or dilated common duct. The study was independently viewed by me. Laboratory Tests: UA-Culture if indicated: (MANDY: 08/11/2016 17:32) ( [facility] [place] 08/11/2016 18:05) Final results Test Result Flag Units (Reference) URINE COLOR YELLOW URINE APPEARANCE CLEAR URINE GLUCOSE NEGATIVE (NEGATIVE) URINE BILIRUBIN NEGATIVE (NEGATIVE) URINE KETONE NEGATIVE (NEGATIVE) URINE SPECIFIC GRAVITY >= 1.030 (1.010-1.030) URINE PH 6.0 (5.0-8.0) URINE PROTEIN TRACE (NEGATIVE) URINE UROBILINOGEN 0.2 EU/dL (0.2-1.0) URINE NITRITE NEGATIVE (NEGATIVE) URINE BLOOD TRACE-INTACT (NEGATIVE) URINE LEUK ESTERASE NEGATIVE (NEGATIVE) URINE RBC 0-1 rbc/hpf (0-1) URINE WBC 0-1 wbc/hpf (0-1) URINE EPITHELIAL CELLS RARE EPI/hpf (0-5) URINE BACTERIA NONE SEEN (NONE SEEN) URINE COMMENT CULT NOT INDICATED 1+ MUCUSURINE CULTURES ARE SET-UP BASED ON THE FOLLOWING CRITERIA:POSITIVE NITRITEPOSITIVE LEUKOCYTE ESTERASEGREATER THAN 10 WHITE BLOOD CELLSMODERATE (2+) OR GREATER BACTERIA CBC w Diff: (MANDY: 08/11/2016 17:05) ( [facility] 08/11/2016 17:54) Final results Test Result Flag Units (Reference) WHITE BLOOD COUNT 3.6 L K/uL (4.5-11.5) RED BLOOD COUNT 5.50 M/uL (4.50-5.90) HEMOGLOBIN 15.1 gm/dL (13.5-17.5) HEMATOCRIT 45.9 % (41.0-53.0) MEAN CELL VOLUME 84 fL (80-100) MEAN CORPUSCULAR HGB 27 pg (26-34) MEAN CORPUSCULAR HGB CONC 33 g/dL (31-37) RED CELL DISTRIBUTION WIDTH 15.9 H % (11.6-14.8) PLATELET COUNT 276 K/uL (150-400) NEUTROPHIL % 56.3 % (50-75) LYMPH % 34.1 % (25-40) MONO % 8.5 % (3-14) EOSINOPHIL % 0.8 % (0-4) BASOPHIL % 0.3 % (0-2) Ethyl Alcohol: (MANDY: 08/11/2016 17:05) ( [facility] 08/11/2016 19:12) Final results Test Result Flag Units (Reference) ETHYL ALCOHOL 64 H mg/dL (3-10) Urine Drug Screen: (MANDY: 08/11/2016 17:32) ( [facility] 08/11/2016 18:10) Final results Test Result Flag Units (Reference) AMPHETAMINE/METHAMPHETAMINE NEGATIVE (NEGATIVE) BARBITURATE NEGATIVE (NEGATIVE) BENZODIAZEPINE POSITIVE H (NEGATIVE) CANNABINOID POSITIVE H (NEGATIVE) COCAINE POSITIVE H (NEGATIVE) ECSTASY NEGATIVE (NEGATIVE) METHADONE NEGATIVE (NEGATIVE) OPIATE NEGATIVE (NEGATIVE) The urine drug screen is a qualitative screening test fordrug overdose and abuse. All screen results should beconsidered as presumptive.Drugs screened for are as follows:BenzodiazepinesCocaineAmphetamines/MetamphetaminesTHC (Tetrahydrocannabinol)OpiatesBarbituratesEcstasyMethadonePositive results are unconfirmed. For confirmation, notifythe lab for the specimen to be sent to the reference lab.All confirmations must be performed by a differentmethodology.The ingestion of natural herbal and plant productscontaining Ephedra/Ephedra metabolites can produce in urineone or more substances capable of cross reacting withamphetamine/methamphetamine immunoassays. These testsprovide a preliminary result only. A more specificalternative chemical method must be used to obtain aconfirmed analytical result. CMP: (MANDY: 08/11/2016 17:05) ( MsgRcvd 08/11/2016 18:13) Final results Test Result Flag Units (Reference) GLUCOSE 148 H mg/dL (70-110) BUN 16 mg/dL (7-18) CREATININE 1.1 mg/dL (0.6-1.3) Estimated GFR >60 mL/min Estimated GFR- >60 mL/min Note: Persistent reduction over 3 months in eGFR<60 mL/min/1.73 m2 defines CKD. Patients with eGFR values>=60 mL/min/1.73 m2 may also have CKD if evidence ofpersistent proteinuria. Additional information may be foundat www.kidney.org. SODIUM 133 L mmol/L (136-145) POTASSIUM 4.1 mmol/L (3.5-5.1) CHLORIDE 97 L mmol/L (98-107) CARBON DIOXIDE 22 mmol/L (21-32) CALCIUM 8.7 mg/dL (8.5-10.1) TOTAL PROTEIN 8.4 H g/dL (6.4-8.2) ALBUMIN 4.2 g/dL (3.3-5.0) BILIRUBIN, TOTAL 1.0 mg/dL (0.0-1.0) ALKALINE PHOSPHATASE 119 H U/L (46-116) AST (SGOT) 105 H U/L (15-37) ALT (SGPT) 97 H U/L (12-78) LIPASE 1346 H U/L (73-393) AMYLASE 172 H U/L (25-115) . PROGRESS AND PROCEDURES Course of Care: Patient is stable. Discussed case with hospitalist, (Kimani - he saw the patient in the ER). Reviewed test results and need for additional work-up. Agreed upon treatment plan, need for patient follow-up and decision to place in observation. Patient/family counseled. Old medical records reviewed. Disposition orders written (in [facility]). Disposition: Admitted. CLINICAL IMPRESSION Acute pancreatitis. Substance abuse- alcohol, marijuana, benzodiazepines, cocaine. (Electronically signed by Sher Han MD 08/12/2016 21:42)
--- NOTE | 2016-08-11 19:45 | ED ORDER SUMMARY ---
..... Patient: CHICHO ANGEL OrderSheet [facility] VisitID: [id number] [place] [address] 31y, M Registration Date/Time: 08/11/2016 ORDER SHEET Weight: 68.0 kg (stated) Allergies: No Known Drug Allergy GENERAL ORDERS: CBC w Diff Urgent (17:31 08/11/2016 Leonel CABALLERO) (Ack 17:32 [place]) (17:32 KWilliams R.N.) CMP Urgent (17:08/11/2016 Leonel CABALLERO) (Ack 17:32 [place]) (17:32 KWilliams R.N.) UA-Culture if indicated Urgent (17:08/11/2016 Leonel CABALLERO) (Ack 17:32 [place]) (17:44 KWilliams R.N.) Amylase Urgent (17:08/11/2016 Leonel CABALLERO) (Ack 17:32 [place]) (17:33 KWilliams R.N.) Lipase Urgent (17:31 08/11/2016 Leonel CABALLERO) (Ack 17:32 [place]) (17:33 KWilliams R.N.) Urine Drug Screen Urgent (17:43 08/11/2016 Leonel CABALLERO) (Ack 17:44 [place]) (17:44 KWilliams R.N.) CT Abd/Pel w Cont (No) (See report) (pancreatitis) Urgent (18:16 08/11/2016 Leonel CABALLERO) (Ack 18:17 [place]) (18:29 KWilliams R.N.) Ethyl Alcohol Urgent (18:48 08/11/2016 Leonel CABALLERO) (Ack 18:48 [place]) (19:16 CBradburn R.N.) US Abdomen Limited (No) Urgent (19:04 08/11/2016 Leonel CABALLERO) (Ack 19:06 [place]) (19:16 CBradburn R.N.) MEDICATION ORDERS: IV FLUIDS: IV NS : initial bolus 500 mL (1000 mL/hr), then 125 mL/hr for 4h (NOW); Urgent (17:31 08/11/2016 Leonel CABALLERO) (17:45 Bere R.N.) (Cancelled: Other18:09 Leonel CABALLERO) Zofran IV 4 mg (NOW) (17:42 08/11/2016 Leonel CABALLERO) (17:48 Bere R.N.) IV NS : initial bolus 1000 mL (1000 mL/hr), then 1000 mL/hr for X2 (NOW); Urgent (18:09 08/11/2016 Leonel CABALLERO) (19:16 CBenma R.N.) Protonix IVP 40mg 40 mg (Mix in NS 10ml over 2min) (18:10 08/11/2016 Leonel CABALLERO) (18:21 KWfelix R.N.) Dilaudid IV 0.5 mg (HIGH ALERT MEDICATION, NOW) (18:11 08/11/2016 Leonel CABALLERO) (18:22 KWfelix R.N.) Dilaudid IV 0.5 mg (HIGH ALERT MEDICATION, NOW) (19:07 08/11/2016 Leonel CABALLERO) (19:14 CBenma R.N.) ORDER SHEET NOTES: [Electronically signed by Katie Allan R.N. (21:50 08/11/2016)] [Electronically signed by Sher Han MD (21:42 08/12/2016)] [Electronically locked/signed by Katie Allan R.N. (21:50 08/11/2016)]
--- NOTE | 2016-08-11 19:45 | ED CLINICAL REPORT ---
Clinical Report - Physicians/Mid Levels [facility] [address] [place] [address] 08/11/2016 16:52 Patient: CHICHO ANGEL Time Seen: 17:20. Arrived- By private vehicle. Historian- patient. HISTORY OF PRESENT ILLNESS Chief Complaint: ABDOMINAL PAIN. It is described as burning and it is described as located in the upper abdomen and radiating to the chest and upper back. At its maximum, severity described as severe. When seen in the E.D., severity described as severe. Modifying factors- worsened by movement and walking. This started today and is still present. It was abrupt in onset and has been constant. The patient has had nausea and loss of appetite. He has had vomiting. The vomiting has occurred numerous times and has been bilious. No blood-tinged emesis, coffee-grounds emesis or frankly bloody emesis. No diarrhea. Similar symptoms previously: REVIEW OF SYSTEMS The patient has had chills (when vomiting). No fatigue, fever, calf pain, pedal edema or palpitations. No black stools, bloody stools or urinary problems. He has experienced sweats. (when vomiting). All systems otherwise negative, except as recorded above. PAST HISTORY PCP - Jj Wood. Medications: SEROquel Oral. TraZODone HCl Oral. Acetaminophen Oral. Fluticasone Furoate Nasal. Folic Acid Oral. Ibuprofen Oral. Loratadine Oral. Metoprolol Tartrate Oral. Norvasc Oral. Protonix Oral. Allergies: No Known Drug Allergy. SOCIAL HISTORY Never smoker. Heavy alcohol use; consumes four beers a day. History of occasional drug use: marijuana. FAMILY HISTORY Hypertension in first-degree relative (mother and father). ADDITIONAL NOTES The nursing notes have been reviewed. PHYSICAL EXAM Vital Signs: 08/11/2016 17:03 BP: 149/105. HR: 81. RR: 16. O2 saturation: 97%. Temp: 98.7 F. Have been reviewed. Appearance: Appears to be in pain. Eyes: Pupils equal, round and reactive to light. ENT: Pharynx normal. Neck: Normal inspection. Neck supple. CVS: Normal heart rate and rhythm. Heart sounds normal. Respiratory: No respiratory distress. Breath sounds normal. Abdomen: Moderate tenderness in the upper abdomen. Back: Normal inspection. No CVA tenderness. Skin: Skin warm. Normal skin color. Normal skin turgor. Extremities: Extremities exhibit normal ROM. No lower extremity edema. LABS, X-RAYS, AND EKG Abdominal CT: IMPRESSION: 1. Mild to moderate inflammatory changes of the pancreas consistent with acute pancreatitis. 2. Mild fatty infiltration of the liver. 3. Trace free fluid in the pelvis. 4. Otherwise negative CT abdomen and pelvis. The study was interpreted contemporaneously by me and discussed with the radiologist. Abdominal Sonogram: Normal study. No gallstones, gallbladder wall thickening or dilated common duct. The study was independently viewed by me. Laboratory Tests: UA-Culture if indicated: (MANDY: 08/11/2016 17:32) ( [facility] [place]/11[place] 18:05) Final results Test Result Flag Units (Reference) URINE COLOR YELLOW URINE APPEARANCE CLEAR URINE GLUCOSE NEGATIVE (NEGATIVE) URINE BILIRUBIN NEGATIVE (NEGATIVE) URINE KETONE NEGATIVE (NEGATIVE) URINE SPECIFIC GRAVITY >= 1.030 (1.010-1.030) URINE PH 6.0 (5.0-8.0) URINE PROTEIN TRACE (NEGATIVE) URINE UROBILINOGEN 0.2 EU/dL (0.2-1.0) URINE NITRITE NEGATIVE (NEGATIVE) URINE BLOOD TRACE-INTACT (NEGATIVE) URINE LEUK ESTERASE NEGATIVE (NEGATIVE) URINE RBC 0-1 rbc/hpf (0-1) URINE WBC 0-1 wbc/hpf (0-1) URINE EPITHELIAL CELLS RARE EPI/hpf (0-5) URINE BACTERIA NONE SEEN (NONE SEEN) URINE COMMENT CULT NOT INDICATED 1+ MUCUSURINE CULTURES ARE SET-UP BASED ON THE FOLLOWING CRITERIA:POSITIVE NITRITEPOSITIVE LEUKOCYTE ESTERASEGREATER THAN 10 WHITE BLOOD CELLSMODERATE (2+) OR GREATER BACTERIA CBC w Diff: (MANDY: 08/11/2016 17:05) ( [facility] 08/11/2016 17:54) Final results Test Result Flag Units (Reference) WHITE BLOOD COUNT 3.6 L K/uL (4.5-11.5) RED BLOOD COUNT 5.50 M/uL (4.50-5.90) HEMOGLOBIN 15.1 gm/dL (13.5-17.5) HEMATOCRIT 45.9 % (41.0-53.0) MEAN CELL VOLUME 84 fL (80-100) MEAN CORPUSCULAR HGB 27 pg (26-34) MEAN CORPUSCULAR HGB CONC 33 g/dL (31-37) RED CELL DISTRIBUTION WIDTH 15.9 H % (11.6-14.8) PLATELET COUNT 276 K/uL (150-400) NEUTROPHIL % 56.3 % (50-75) LYMPH % 34.1 % (25-40) MONO % 8.5 % (3-14) EOSINOPHIL % 0.8 % (0-4) BASOPHIL % 0.3 % (0-2) Ethyl Alcohol: (MANDY: 08/11/2016 17:05) ( [facility] 08/11/2016 19:12) Final results Test Result Flag Units (Reference) ETHYL ALCOHOL 64 H mg/dL (3-10) Urine Drug Screen: (MANDY: 08/11/2016 17:32) ( [facility] 08/11/2016 18:10) Final results Test Result Flag Units (Reference) AMPHETAMINE/METHAMPHETAMINE NEGATIVE (NEGATIVE) BARBITURATE NEGATIVE (NEGATIVE) BENZODIAZEPINE POSITIVE H (NEGATIVE) CANNABINOID POSITIVE H (NEGATIVE) COCAINE POSITIVE H (NEGATIVE) ECSTASY NEGATIVE (NEGATIVE) METHADONE NEGATIVE (NEGATIVE) OPIATE NEGATIVE (NEGATIVE) The urine drug screen is a qualitative screening test fordrug overdose and abuse. All screen results should beconsidered as presumptive.Drugs screened for are as follows:BenzodiazepinesCocaineAmphetamines/MetamphetaminesTHC (Tetrahydrocannabinol)OpiatesBarbituratesEcstasyMethadonePositive results are unconfirmed. For confirmation, notifythe lab for the specimen to be sent to the reference lab.All confirmations must be performed by a differentmethodology.The ingestion of natural herbal and plant productscontaining Ephedra/Ephedra metabolites can produce in urineone or more substances capable of cross reacting withamphetamine/methamphetamine immunoassays. These testsprovide a preliminary result only. A more specificalternative chemical method must be used to obtain aconfirmed analytical result. CMP: (MANDY: 08/11/2016 17:05) ( MsgRcvd 08/11/2016 18:13) Final results Test Result Flag Units (Reference) GLUCOSE 148 H mg/dL (70-110) BUN 16 mg/dL (7-18) CREATININE 1.1 mg/dL (0.6-1.3) Estimated GFR >60 mL/min Estimated GFR- >60 mL/min Note: Persistent reduction over 3 months in eGFR<60 mL/min/1.73 m2 defines CKD. Patients with eGFR values>=60 mL/min/1.73 m2 may also have CKD if evidence ofpersistent proteinuria. Additional information may be foundat www.kidney.org. SODIUM 133 L mmol/L (136-145) POTASSIUM 4.1 mmol/L (3.5-5.1) CHLORIDE 97 L mmol/L (98-107) CARBON DIOXIDE 22 mmol/L (21-32) CALCIUM 8.7 mg/dL (8.5-10.1) TOTAL PROTEIN 8.4 H g/dL (6.4-8.2) ALBUMIN 4.2 g/dL (3.3-5.0) BILIRUBIN, TOTAL 1.0 mg/dL (0.0-1.0) ALKALINE PHOSPHATASE 119 H U/L (46-116) AST (SGOT) 105 H U/L (15-37) ALT (SGPT) 97 H U/L (12-78) LIPASE 1346 H U/L (73-393) AMYLASE 172 H U/L (25-115) . PROGRESS AND PROCEDURES Course of Care: Patient is stable. Discussed case with hospitalist, (Kimani - he saw the patient in the ER). Reviewed test results and need for additional work-up. Agreed upon treatment plan, need for patient follow-up and decision to place in observation. Patient/family counseled. Old medical records reviewed. Disposition orders written (in [facility]). Disposition: Admitted. CLINICAL IMPRESSION Acute pancreatitis. Substance abuse- alcohol, marijuana, benzodiazepines, cocaine. (Electronically signed by Sher Han MD 08/12/2016 21:42)
--- NOTE | 2016-08-11 21:41 | DIAGNOSTIC IMAGING REPORT ---
PROCEDURE: US ABDOMEN ULTRASOUND-LIMITED INDICATION: Pancreatitis. TECHNIQUE: Silverio scale and color Doppler sonographic images of the abdomen were obtained. COMPARISON: Compared CT abdomen pelvis earlier today (08/11/2016). FINDINGS: Gallbladder is normal. No evidence of gallstones. Common duct is normal (5 mm). Portions of the pancreas are seen and are mildly edematous (consistent with pancreatitis). Portions of the liver, and right kidney are seen, and are normal. IMPRESSION: 1. Mild edema of the pancreas consistent with pancreatitis. 2. Otherwise negative ultrasound of the gallbladder and right upper quadrant. No evidence of gallstones.
[2016-08-11 21:54] VITALS: BP 148/108
--- NOTE | 2016-08-11 21:57 | NUR ---
PATIENT JUST ARRIVED TO UNIT. TRANSFERED TO BED WELL.
[2016-08-11] MEDS ORDERED: CLARITIN10 M2 PO (23:19)
[2016-08-11] MEDS ORDERED: PROTONIX40 MG PO (23:19)
[2016-08-11] MEDS ORDERED: GABAPENTIN300 MG (23:20)
[2016-08-11] MEDS ORDERED: TYLENOL325 MG PO (23:20)
[2016-08-11] MEDS ORDERED: TOPROL XL50 MG PO (23:21)
[2016-08-11] MEDS ORDERED: TRAZODONE HCL50 MG PO ×2 (23:22→23:23)
[2016-08-11] MEDS ORDERED: FOLIC ACID1 MG PO (23:22)
--- NOTE | 2016-08-11 23:50 | NUR ---
PATIENT IS ALERT AND ORIENTED. HAS ABDOMINAL PAIN. LUNG SOUNDS CLEAR. BOWEL TONES HYPOACTIVE. HEART TONES WNL. PULSES PRESENT. NO C/O SOB. NO C/O CHEST PAIN.
--- NOTE | 2016-08-12 00:49 | NUR ---
Pt. is resting in bed at this time, awake and was c/o 10/10 pain in abdomen despite 0.5 mg dilaudid given on evening shift. Notified MD Harman, received order to give 0.5 dilaudid to equal 1 mg total dose, and to increase dilaudid to 1 mg every 4 hours for pain. Administered 0.5 mg dose, will monitor for effectiveness. Pt. is currently on ETOH protocol, score 6. Sl. nausea, zofran administered. Pt. is NPO. IV fluids infusing without issues. WCTM.
--- NOTE | 2016-08-12 00:53 | HISTORY AND PHYSICAL ---
ADMITTED: 08/11/2016 CHIEF COMPLAINT: 1. Abdominal pain HISTORY OF PRESENT ILLNESS: This is a 31-year-old reported to emergency department with abdominal pain in the upper abdomen, started the night before without any radiation, severity of 8-10/10. The patient also had nausea and vomited 3 times. No blood in the vomitus. Also had loose stool x2, no black stool, no blood in the stool. No fever, but patient had chills. The patient admits that he has been drinking heavily alcohol. MEDICAL/SURGICAL HISTORY: Past medical history: Remarkable for hypertension and GERD. Surgical history: Remarkable for arm surgery. Hospitalization: Last one was 6 weeks ago for the pancreatitis. MEDICATIONS: The patient knows the name of the medication, but cannot remember the dosages, so not known. 1. Folic acid. 2. Claritin. 3. Metoprolol tartrate. 4. Norvasc. 5. Protonix. 6. Trazodone. ALLERGIES: 1. THERE ARE NO KNOWN DRUG ALLERGIES. SOCIAL HISTORY: The patient is single, has 3 kids. Lives with his girlfriend. Smokes half pack a day for 11 years. Alcohol: Heavy drinking for 16 years on and off, last drink was the night before. Drugs: Smokes marijuana. FAMILY HISTORY: Remarkable for deep venous thrombosis and hypertension. REVIEW OF SYSTEMS: The patient has been gaining weight recently. No difficulty with vision or hearing. Mild cough. No runny nose, congestion or sore throat. No chest pain, shortness of breath or palpitations. No dysuria, frequency or incontinence. No arthralgia or myalgia. No headaches. No dizziness. No tingling, no numbness. Localized muscle weakness. No syncope. PHYSICAL EXAMINATION: VITAL SIGNS: Blood pressure 149/105, heart rate is 81, respiration of 16, oxygen saturation 97% on room air, temperature is 98.7. GENERAL APPEARANCE: Well-developed, well-nourished, good body build, mildly distressed due to pain in the abdomen. HEENT: Ears: Normal tympanic membranes. Mouth: Normal hypopharynx, no exudation, no erythema. Nose: Normal mucosa. NECK: Supple. No JVD. No carotid bruit. No palpable mass. SKIN: Warm and dry with good turgor. LUNGS: Clear to auscultation. No rhonchi. No crackles or wheezing. HEART: Regular S1 and S2. No murmur. No S3 was heard. ABDOMEN: Soft, but tender and bowel sounds are hypoactive. The patient has very mild guarding and tenderness is in upper abdomen, especially in epigastric area. EXTREMITIES: No edema. Good peripheral pulses. No signs of DVT or cyanosis. MUSCULOSKELETAL: Grossly within normal limits. NEUROLOGIC: Alert and oriented x3. Cranial nerves are grossly intact. No motor deficits. Pupils are equal, round, and reactive to light. Extraocular movements are intact. No nystagmus. No cerebellar signs. LAB/IMAGING: Labs: UA is unremarkable. White blood count is 3.6, hemoglobin 15.1, hematocrit is 45.9 and platelet count is 276,000. Drug screen is positive for benzodiazepine, cocaine, and marijuana. Glucose is 148, BUN is 16, creatinine is 1.1, sodium is 133, potassium 4.1, chloride is 97, CO2 is 22, calcium is 8.7. Liver enzymes: Elevated. AST is 106, ALT is 97, lipase is 1346 and amylase is 172. IMPRESSION: 1. Pancreatitis. 2. Alcohol abuse. 3. Cocaine abuse. 4. Hypertension. PLAN: The patient will be admitted to intensive care unit inpatient and will be on n.p.o. and intravenous hydration. We will manage the pain with Dilaudid IV. We will monitor the amylase and lipase. The patient will be on IV Protonix and IV Lopressor 5 mg every 6 hours. The patient also will be on alcohol withdrawal protocol.
[2016-08-12 01:51] VITALS: BP 141/103
--- NOTE | 2016-08-12 02:32 | NUR ---
Notified Dr. Harman of pt. scoring higher on ETOH protocol, and that pt. is anxious/still c/o pain 7/10 in abdomen despite dilaudid administration. Per MD Harman, initiate ETOH protocol orders with the scheduled ativan. No new orders for pain medication.
[2016-08-12 06:33] VITALS: BP 145/102
--- NOTE | 2016-08-12 08:01 | NUR ---
Pt. sleepign throughout shift. Ativan helped relax pt. and pt. was able to sleep. Pain is controlled at 0/10 at this time.
[2016-08-12 10:31] VITALS: BP 138/94
--- NOTE | 2016-08-12 13:07 | NUR ---
0745- assessment completed. pt is alert and oriented, he reports abd pain well controlled currently. denies nausea. discussed pain management and symptoms of withdrawal. discussed use of call light and fall precautions. pt states understanding. will continue to assess and monitor.
[2016-08-12 14:23] VITALS: BP 141/96
--- NOTE | 2016-08-12 15:34 | NUR ---
NUTRITION NOTE: Pt admitted with dx/o pancreattis and he is currently NPO. PMH includes ETOH abuse, cocaine abuse, HTN. Rev'd meds, good to see folic acid and thiamin in place 2/2 ETOH hx. Rev'd labs, lipase trending up since 08/11 1345, 2031 respectively. Rec start PO diet when medically appropriate. RD to follow up with complete assessment per protocol.
[2016-08-12 18:10] VITALS: BP 145/102
--- NOTE | 2016-08-12 19:14 | NUR ---
I TOLD DR FLORES ABOUT PATIETNS HIGH TEMPERATURE. NO NEW ORDERS FROM AT THIS TIME.
--- NOTE | 2016-08-12 19:59 | NUR ---
WAS TOLD DR WAS AWARE OF CURRENT LAB VALUES, PATIENT RESTING IN BED NOW.
--- NOTE | 2016-08-12 21:12 | DIAGNOSTIC IMAGING REPORT ---
PROCEDURE: XR CHEST 1 VIEW INDICATION: fever TECHNIQUE: Portable AP view 07:23 p.m. COMPARISON: None. FINDINGS: Poor inspiration but lungs are clear. Heart and mediastinum are normal. Thorax is normal. IMPRESSION: 1. Negative chest.
--- NOTE | 2016-08-12 21:43 | ED MAR SUMMARY ---
..... Medication Administration Record [facility] [address] [place] [address] Patient: CHICHO ANGEL Visit ID: [id number] 31y, M Weight: 68.0 kg Height/Length: 64 in BMI: 25.8 ALLERGIES: No Known Drug Allergy Start 17:35 08/11/2016 Lori Rincon R.N., Stop 20:18 08/11/2016 Katie Allan R.N. Medication Administered: IV NS (SALINE), Dose: IV Fluids over 1 hour(s), Rate: 125 mL/hr, Bolus: 500 mL over 30 minute(s), Dispensed: 1000 mL bag, Site: #1 left AC. Medication Ordered: IV NS : initial bolus 500 mL (1000 mL/hr), then 125 mL/hr for 4h (NOW); Urgent. Given 17:45 08/11/2016 Lori Rincon R.N. Medication Administered: ZOFRAN [IVP] (ONDANSETRON HCL), Dose: 4 mg IVP over 2 minute(s), Site: #1 left AC. Medication Ordered: Zofran IV 4 mg (NOW). Given 18:16 08/11/2016 Lori Rincon R.N. Medication Administered: PROTONIX [IVP] (PANTOPRAZOLE SODIUM), Dose: 40 mg IVP over 2 minute(s), Site: #1 left AC. Medication Ordered: Protonix IVP 40mg 40 mg (Mix in NS 10ml over 2min). Given 18:22 08/11/2016 Lori Rincon R.N. Medication Administered: DILAUDID [IVP] (HYDROMORPHONE HCL PF), Dose: 0.5 mg IVP over 2 minute(s), Site: #1 left AC. Medication Ordered: Dilaudid IV 0.5 mg (HIGH ALERT MEDICATION, NOW). Given 19:14 08/11/2016 Katie Allan R.N. Medication Administered: DILAUDID [IVP] (HYDROMORPHONE HCL PF), Dose: 0.5 mg IVP over 2 minute(s), Site: #1 left AC. Medication Ordered: Dilaudid IV 0.5 mg (HIGH ALERT MEDICATION, NOW). Start 19:16 08/11/2016 Katie Allan R.N., Stop 20:16 08/11/2016 Katie Allan R.N. Medication Administered: IV NS (SALINE), Dose: IV Fluids, Bolus: 1000 mL over 1 hour(s), Dispensed: 1000 mL bag, Site: #1 left . Medication Ordered: IV NS : initial bolus 1000 mL (1000 mL/hr), then 1000 mL/hr for X2 (NOW); Urgent.
--- NOTE | 2016-08-12 21:43 | ED MED RECONCILIATION SUMMARY ---
Patient: CHICHO ANGEL Medication Reconciliation Report [facility] VisitID: [id number] [address] [place] [address] 31y, M Registration Date/Time: 08/11/2016 Weight: 68.0 kg Height/Length: 64 in. BMI: 25.8 ALLERGIES: No Known Drug Allergy The patient's Home Medications are listed below: THE FOLLOWING MEDICATIONS NEED TO BE RECONCILED: Acetaminophen Oral Fluticasone Furoate Nasal Folic Acid Oral Ibuprofen Oral Loratadine Oral Metoprolol Tartrate Oral Norvasc Oral Protonix Oral SEROquel Oral TraZODone HCl Oral The source(s) of the original Home Medication information: patient The following Medications were given to the patient in the Emergency Department: IV NS IV Fluids bolus 500 mL over 30 minute(s), then 125 mL/hr, administered: 08/11/2016 5:35:00 PM Zofran [IVP] IVP 4 mg, administered: 08/11/2016 5:45:00 PM PROTONIX [IVP] IVP 40 mg, administered: 08/11/2016 6:16:00 PM Dilaudid [IVP] IVP 0.5 mg, administered: 08/11/2016 6:22:00 PM Dilaudid [IVP] IVP 0.5 mg, administered: 08/11/2016 7:14:00 PM IV NS IV Fluids bolus 1000 mL over 1 hour(s), administered: 08/11/2016 7:16:00 PM The following Medications were prescribed to the patient: None.
--- NOTE | 2016-08-12 21:43 | ED MAR SUMMARY ---
..... Medication Administration Record [facility] [address] [place] [address] Patient: CHICHO ANGEL Visit ID: [id number] 31y, M Weight: 68.0 kg Height/Length: 64 in BMI: 25.8 ALLERGIES: No Known Drug Allergy Start 17:35 08/11/2016 Lori Rincon R.N., Stop 20:18 08/11/2016 Katie Allan R.N. Medication Administered: IV NS (SALINE), Dose: IV Fluids over 1 hour(s), Rate: 125 mL/hr, Bolus: 500 mL over 30 minute(s), Dispensed: 1000 mL bag, Site: #1 left AC. Medication Ordered: IV NS : initial bolus 500 mL (1000 mL/hr), then 125 mL/hr for 4h (NOW); Urgent. Given 17:45 08/11/2016 Lori Rincon R.N. Medication Administered: ZOFRAN [IVP] (ONDANSETRON HCL), Dose: 4 mg IVP over 2 minute(s), Site: #1 left AC. Medication Ordered: Zofran IV 4 mg (NOW). Given 18:16 08/11/2016 Lori Rincon R.N. Medication Administered: PROTONIX [IVP] (PANTOPRAZOLE SODIUM), Dose: 40 mg IVP over 2 minute(s), Site: #1 left AC. Medication Ordered: Protonix IVP 40mg 40 mg (Mix in NS 10ml over 2min). Given 18:22 08/11/2016 Lori Rincon R.N. Medication Administered: DILAUDID [IVP] (HYDROMORPHONE HCL PF), Dose: 0.5 mg IVP over 2 minute(s), Site: #1 left AC. Medication Ordered: Dilaudid IV 0.5 mg (HIGH ALERT MEDICATION, NOW). Given 19:14 08/11/2016 Katie Allan R.N. Medication Administered: DILAUDID [IVP] (HYDROMORPHONE HCL PF), Dose: 0.5 mg IVP over 2 minute(s), Site: #1 left AC. Medication Ordered: Dilaudid IV 0.5 mg (HIGH ALERT MEDICATION, NOW). Start 19:16 08/11/2016 Katie Allan R.N., Stop 20:16 08/11/2016 Katie Allan R.N. Medication Administered: IV NS (SALINE), Dose: IV Fluids, Bolus: 1000 mL over 1 hour(s), Dispensed: 1000 mL bag, Site: #1 left . Medication Ordered: IV NS : initial bolus 1000 mL (1000 mL/hr), then 1000 mL/hr for X2 (NOW); Urgent.
--- NOTE | 2016-08-12 21:43 | ED MED RECONCILIATION SUMMARY ---
Patient: CHICHO ANGEL Medication Reconciliation Report [facility] VisitID: [id number] [address] [place] [address] 31y, M Registration Date/Time: 08/11/2016 Weight: 68.0 kg Height/Length: 64 in. BMI: 25.8 ALLERGIES: No Known Drug Allergy The patient's Home Medications are listed below: THE FOLLOWING MEDICATIONS NEED TO BE RECONCILED: Acetaminophen Oral Fluticasone Furoate Nasal Folic Acid Oral Ibuprofen Oral Loratadine Oral Metoprolol Tartrate Oral Norvasc Oral Protonix Oral SEROquel Oral TraZODone HCl Oral The source(s) of the original Home Medication information: patient The following Medications were given to the patient in the Emergency Department: IV NS IV Fluids bolus 500 mL over 30 minute(s), then 125 mL/hr, administered: 08/11/2016 5:35:00 PM Zofran [IVP] IVP 4 mg, administered: 08/11/2016 5:45:00 PM PROTONIX [IVP] IVP 40 mg, administered: 08/11/2016 6:16:00 PM Dilaudid [IVP] IVP 0.5 mg, administered: 08/11/2016 6:22:00 PM Dilaudid [IVP] IVP 0.5 mg, administered: 08/11/2016 7:14:00 PM IV NS IV Fluids bolus 1000 mL over 1 hour(s), administered: 08/11/2016 7:16:00 PM The following Medications were prescribed to the patient: None.
--- NOTE | 2016-08-12 21:43 | ED DISCHARGE INSTRUCTIONS ---
Patient: CHICHO ANGEL General Instructions [facility] VisitID: [id number] [address] [place] [address] 31y, M Registration Date/Time: 08/11/2016 Acute pancreatitis. Substance abuse- alcohol, marijuana, benzodiazepines, cocaine. (Electronically signed by Sher Han MD 08/12/2016 21:42)
--- NOTE | 2016-08-12 21:43 | ED DISCHARGE INSTRUCTIONS ---
Patient: CHICHO ANGEL General Instructions [facility] VisitID: [id number] [address] [place] [address] 31y, M Registration Date/Time: 08/11/2016 Acute pancreatitis. Substance abuse- alcohol, marijuana, benzodiazepines, cocaine. (Electronically signed by Sher Han MD 08/12/2016 21:42)
[2016-08-13] VITALS (7 sets, daily range): BP systolic 129–155; BP diastolic 87–105
--- NOTE | 2016-08-13 03:35 | NUR ---
Pt. is resting in bed at this time. Drowsy, on scheduled ativan. Reported having bad nightmares tonight. Etc02 monitor on. Woke up and c/o 10/10 pain in abdomen, generalized. Administered dilaudid, effective. Pt. is NPO. Alert and oriented, cooperative. IV fluids infusing without issues. Drowsy and falls back asleep easily in between care. WCTM.
--- NOTE | 2016-08-13 09:45 | NUR ---
RECEIVED PT IN BED, DROWSY BUT EASILY AROUSED. ORIENTED, COHERENT, COOPERATIVE. SO IS WITH THE PT. ASSESSMENT DONE. PT DENIES ANY PAIN, N/V AT THIS TIME. DUE MEDS GIVEN. DR MARCELINO NOTIFIED REGARDING LAB RESULTS. MAINTAINED ON NPO.
--- NOTE | 2016-08-13 10:32 | NUR ---
NUTRITION ASSESSMENT: S: Pt admitted with dx/o pancreatitis and ETOH. Pt is currenly on ETOH withdrawal protocol and remains NPO. O: diet rx: NPO NKFA Wts: 65.9 kg ht: 64" IBW: 63-70 kg BMI: 25 Est Kcals: ~6429-5555 kcals per day Est Pro: ~66-79 g per day Est Fluids: ~1980 mls per day Meds Incl: B1, folic acid, metoprolol, IVFs, lorazepam, see eMar for complete list. Labs: Rev'd; lipase 1346, 2032, 406 respectively Skin: No open areas noted or reproted. Omi wnl A: NPO 2/2 lipase, however anticipate diet order soon with lipase on downward trend. Rec general diet. CBW wnl. Continue vitamins per protocol, likely oral PNV and B1 when able to have po rx. RD to follow up and monitor nutrition indices prn/protocol. P: 1. General diet when medically appropriate 2. Continue PNV and B1
--- NOTE | 2016-08-13 13:27 | Progress Note ---
Subjective General Patient seen and examined this morning. Patient had no acute events overnight. Patient has no evidence of alcohol withdrawal. Patient's pain is moderately reduced. Patient has no episodes of vomiting or nausea. Patient is beginning to have return of hunger Constitutional Denies: Fever, Chills, Sweats, Weakness, Malaise, Other. ENT Denies: Ear Pain, Ear Discharge, Nose Pain, Nasal Discharge, Nasal Congestion, Mouth Pain, Mouth Swelling, Throat Pain, Throat Swelling, Other. Respiratory Denies: Cough, Dry, SOB w/exertion, Wheezing, Hemoptysis, Pleuritic Pain, Sputum , Other. Cardiovascular Denies: Chest Pain, Palpitations, Orthopnea, PND, Edema, Light-headedness, Other. Gastrointestinal Abdominal Pain. Denies: Nausea, Vomiting, Diarrhea, Constipation, Melena, Hematochezia, Other. Genitourinary Denies: Dysuria, Frequency, Incontinence, Hematuria, Retention, Other. Musculoskeletal Denies: Neck Pain, Shoulder Pain, Arm Pain, Back Pain, Hand Pain, Leg Pain, Foot Pain, Other. Skin Denies: Rash, Lesions, Jaundice, Bruising, Other. Neurological Denies: Weakness, Numbness, Incoordination, Change in speech, Confusion, Seizures, Other. Physical Exam Vital Signs / I&Os Vital Signs Date Time Temp Pulse Resp B/P Pulse O2 O2 Flow FiO2 Ox Delivery Rate 08/13 1031 111 23 96 08/13 1014 99.0 103 16 138/104 96 Room Air 0.0 08/13 0945 Room Air 0.0 08/13 0747 107 18 96 / 0717 98.8 40 16 155/98 93 Room Air 0.0 / 0449 108 26 95 /07 0333 0.0 / 0249 107 24 96 06/ 0236 100.6 116 23 129/87 94 Room Air / 0103 105 27 97 06/07 0059 99.1 110 21 137/105 96 Room Air 08/12 2101 111 27 96 08/12 1908 103 27 95 /06 1828 100.8 Room Air 08/12 1810 114 22 145/102 99 /06 1800 110 21 97 /06 1636 104 18 95 / 1423 99.0 100 141/96 95 Room Air 08/12 1346 106 16 97 I&O 08/12 0800 08/12 1600 08/13 0000 Intake Total 905 0 Output Total 400 375 Balance 505 -375 0 General Appearance Alert, Oriented X3, No acute distress HEENT Atraumatic, PERRLA Lungs Clear to auscultation Cardiovascular Regular rate and rhythm, Normal S1 and S2, No murmurs, gallops, rubs Abdomen Soft, No tenderness Pelvic No masses Extremities No clubbing, No edema, Normal pulses, No tenderness Skin No Breakdown Neurological Normal speech, Sensation intact, Cranial nerves intact, No lateralizing signs Psych/Mental Status Mood normal LAB Results Laboratory Tests 08/13 0730 Chemistry Plasma Sodium (136 - 145 mmol/L) 139 Plasma Potassium (3.5 - 5.1 mmol/L) 3.1 Plasma Chloride (98 - 107 mmol/L) 102 CO2 (Enzymatic) (21 - 32 mmol/L) 25 BUN (7 - 18 mg/dL) 5 Creatinine (0.6 - 1.3 mg/dL) 0.9 Est GFR ( Amer) (mL/min) >60 Est GFR (Non-Af Amer) (mL/min) >60 Glucose (70 - 110 mg/dL) 123 Plasma Calcium (8.5 - 10.1 mg/dL) 7.9 Total Bilirubin (0.0 - 1.0 mg/dL) 0.7 AST (15 - 37 U/L) 23 ALT (12 - 78 U/L) 43 Alkaline Phosphatase (46 - 116 U/L) 80 Total Protein (6.4 - 8.2 g/dL) 6.3 Albumin (3.3 - 5.0 g/dL) 2.7 Lipase (73 - 393 U/L) 406 Hematology WBC (4.5 - 11.5 K/uL) 5.4 RBC (4.50 - 5.90 M/uL) 4.23 Hgb (13.5 - 17.5 gm/dL) 11.8 Hct (41.0 - 53.0 %) 35.7 MCV (80 - 100 fL) 84 MCH (26 - 34 pg) 28 RDW (11.6 - 14.8 %) 16.3 Neut % (Auto) (50 - 75 %) 67.7 Lymph % (Auto) (25 - 40 %) 18.0 [place] % (Auto) (3 - 14 %) 12.6 Eos % (Auto) (0 - 4 %) 1.4 Baso % (Auto) (0 - 2 %) 0.3 Plt Count, EDTA (150 - 400 K/uL) 138 PUBS MCHC (31 - 37 g/dL) 33 Microbiology Date/Time Procedure - Status Source Growth 08/12 1929 Blood Culture - RECD BLOOD 08/12 1914 Blood Culture - RECD BLOOD Assessment and Plan Problem List 1. Pancreatitis Plan patient has pancreatitis secondary to alcohol use Patient will be aggressively rehydrated Patient's lipase is trending downwards We'll continue to trend lipase We'll most likely introduce diet tomorrow If patient tolerates diet and lipase is at appropriate level will consider discharge 2. Substance abuse Plan Patient has an established history of alcohol abuse and drug abuse Patient encouraged not to drink due to the fact that this will only exacerbate pancreatitis in the future Patient is adamant that he is done with drugs and alcohol for the time being Patient does not want any help with substance abuse treatment
--- NOTE | 2016-08-13 16:28 | NUR ---
assessment completed. see shift assessment. pt reports he is feeling better, pain is less than yesterday. reports 6/10 pain right now. he c/o fatigue. IV site to L hand is intact. IVF infusing. denies nausea/vomiting. Passed gas today. bowel tones hypoactive. call light in reach.
--- NOTE | 2016-08-14 02:41 | NUR ---
Pt. is resting quietly in bed, but is c/o 7/10 generalized abdominal pain. Administered dilaudid. Pt is on Etc02 monitor. Telemetry shows NSR, HR in 80's. No hallucinations. Pt. is drowsy but cooperative during care. WCTM.
[2016-08-14 03:55] VITALS: BP 148/81
--- NOTE | 2016-08-14 05:20 | NUR ---
At approx. 0430, pt. became very anxious, stating he was feeling "paranoid" and was itching all over. Pt. became diaphoretic, HR in low 100's to 115 at rest. Pt. states "I feel like I'm withdrawing." Notified Dr. Harman of pt. symptoms. Received new order for ativan 0.5 mg IV stat, administered and effective. WCTM.
[2016-08-14 07:30] VITALS: BP 138/97
[2016-08-14 10:20] VITALS: BP 138/80
--- NOTE | 2016-08-14 13:26 | Provider's Discharge Care Plan ---
Problem, Goal, Plan Problem List 1. Pancreatitis Instructions: - DO NOT CONSUME ALCOHOL - FOLLOW UP WITH YOUR PRIMARY CARE DOCTOR
--- NOTE | 2016-08-14 13:26 | Provider's Discharge Care Plan ---
Problem, Goal, Plan Problem List 1. Pancreatitis Instructions: - DO NOT CONSUME ALCOHOL - FOLLOW UP WITH YOUR PRIMARY CARE DOCTOR
--- NOTE | 2016-08-14 14:16 | NUR ---
patient HR 80's, MD aware. Pt. fiance just arrived and all DC paperwork reviewed and IV DC'd, catheter tip intact. patient has f/u appt for tomorrow and discussed this with DC. patient and his fiance verbalized understanding of all DC instructions. pt. has been alert and oriented during shift, and denies pain at this time. at 1419 patient being escorted out by care aide.
--- NOTE | 2016-08-14 14:19 | NUR ---
per md to hold iv lopressor today and patient to take po lopressor when he goes home today
--- NOTE | 2016-08-14 15:00 | Discharge Summary ---
Discharge Summary Report Admit Date 08/11/16 Discharge Date 08/14/16 Admission Diagnosis Pancreatitis secondary to alcohol abuse Discharge Diagnosis Pancreatitis secondary to alcohol abuse Brief History Please refer to admission H&P Hospital Course Patient is a 31-year-old male that is presenting with abdominal pain. Patient was seen to have pancreatitis most likely secondary to alcohol abuse. Patient has had this happen multiple times in the past. Patient was treated with nothing by mouth status and IV fluids and pain control. Patient did not exhibit any exacerbation during his hospital stay. After 2 days his lipase levels returned to normal and he was able to tolerate a diet. At this point patient will be discharged. Patient will resume all his home medication once he returns home. Patient will follow up with his primary care doctor within 1 week. Patient was told to avoid alcohol and to not to drink again otherwise he is pancreatitis will return General Appearance Alert, Oriented X3, No acute distress HEENT PERRLA, Mucous membran moist/pink Lungs Normal air movement Cardiovascular Normal S1, Normal S2, No murmurs Abdomen Soft, No tenderness Skin No Breakdown Neurological Normal speech, Normal tone, Sensation intact, Cranial nerves 3-12 NL Lab/Imaging Laboratory Tests 08/14 724 Chemistry Plasma Sodium (136 - 145 mmol/L) 134 Plasma Potassium (3.5 - 5.1 mmol/L) 3.1 Plasma Chloride (98 - 107 mmol/L) 99 CO2 (Enzymatic) (21 - 32 mmol/L) 26 BUN (7 - 18 mg/dL) 7 Creatinine (0.6 - 1.3 mg/dL) 0.8 Est GFR ( Amer) (mL/min) >60 Est GFR (Non-Af Amer) (mL/min) >60 Glucose (70 - 110 mg/dL) 85 Plasma Calcium (8.5 - 10.1 mg/dL) 8.1 Total Bilirubin (0.0 - 1.0 mg/dL) 0.9 AST (15 - 37 U/L) 29 ALT (12 - 78 U/L) 36 Alkaline Phosphatase (46 - 116 U/L) 82 Total Protein (6.4 - 8.2 g/dL) 6.7 Albumin (3.3 - 5.0 g/dL) 2.8 Lipase (73 - 393 U/L) 203 Hematology WBC (4.5 - 11.5 K/uL) 3.7 RBC (4.50 - 5.90 M/uL) 3.87 Hgb (13.5 - 17.5 gm/dL) 10.7 Hct (41.0 - 53.0 %) 32.1 MCV (80 - 100 fL) 83 MCH (26 - 34 pg) 28 RDW (11.6 - 14.8 %) 16.1 Neut % (Auto) (50 - 75 %) 57.9 Lymph % (Auto) (25 - 40 %) 27.2 [place] % (Auto) (3 - 14 %) 12.6 Eos % (Auto) (0 - 4 %) 1.9 Baso % (Auto) (0 - 2 %) 0.4 Plt Count, EDTA (150 - 400 K/uL) 117 PUBS MCHC (31 - 37 g/dL) 33 Discharge Instructions/Meds Take home medications as prescribed Avoid alcohol Follow up with your PMD
--- NOTE | 2016-08-14 15:54 | NUR ---
NOTIFIED DR. MARCELINO OF LABS THIS A.M. INCLUDING SODIUM AND POTASSIUM AT 0845 DURING MD'S ROUNDS. JUST CALLED MD TO NOTIFY HIM THAT PATIENT DID NOT GET POTASSIUM REPLACEMENT PRIOR TO DISCHARGE (IT WAS NOT ORDERED). MD STATES THAT HE WILL CALL THE PATIENT, AND THE PATIENT HAS FOLLOW UP SCHEDULED FOR TOMORROW A.M.
== END 2016-08-14 14:26 | disposition home or self-care (01) | DRG 282 ==
LOC: ED SRH 16:51 → ACUTE2 SRH 19:52 → TRANS SRH 19:52 → ACUTE2 SRH 21:50
PROVIDERS: ADMIT Neuromusculoskeletal Medicine, Sports Medicine
DX: K85.20 Alcohol induced acute pancreatitis without necrosis or infection (principal); R11.2 Nausea with vomiting, unspecified; F10.10 Alcohol abuse, uncomplicated; Y90.3 Blood alcohol level of 60-79 mg/100 ml; F14.10 Cocaine abuse, uncomplicated; I10 Essential (primary) hypertension; K21.9 Gastro-esophageal reflux disease without esophagitis; F17.210 Nicotine dependence, cigarettes, uncomplicated